=== PATIENT | female | born 1995 | race Caucasian/White ===

== ENCOUNTER 2018-03-31 15:51 | Emergency (ER) | payer MEDICAID ==
[2018-03-31 15:57] VITALS: BMI 21.7
[2018-03-31 16:04] VITALS: BP 106/68; PULSE 68; RESP 17; TEMP 98.6; O2SAT 100
[2018-03-31 16:43] LABS: HCG,QUALITATIVE URINE NEGATIVE (NEGATIVE)
[2018-03-31 16:52] LABS: SQUAMOUS EPITHIAL < 1 /hpf (0-5); URINE BILIRUBIN NEGATIVE (NEGATIVE); URINE BLOOD NEGATIVE (NEGATIVE); URINE CLARITY Clear (Clear); URINE COLOR Yellow (YELLOW); URINE GLUCOSE (UA) NORMAL (Normal); URINE LEUKOCYTE ESTERASE NEG Leu/uL (Negative); URINE PROTEIN NEGATIVE (NEGATIVE); URINE UROBILINOGEN NORMAL mg/dL (0.2-1.0)
--- NOTE | 2018-03-31 17:33 | C.PDOC ---
Addendum entered and electronically signed by Denisse Torres PA 04/04/18 15:32: Addendum Addendum: 04/04/18 15:31 UA shows no UTI but pt is shows clinical symptoms therefore will be given 5 day course of macrobid and instructed to follow up with PMD in 1-2 days. Discussed return precautions. Original Note: History Of Present Illness 23 y/o female presents to the ER complaining of urinary frequency and dysuria which has been present for the past 1 week. Patient denies having nausea, vomiting, abdominal pain, back pain, vaginal bleeding, and vaginal discharge. Time Seen by Provider: 03/31/18 16:07 Chief Complaint (Nursing): Female Genitourinary History Per: Patient History/Exam Limitations: no limitations Onset/Duration Of Symptoms: Days Current Symptoms Are (Timing): Still Present Past Medical History Reviewed: Historical Data, Nursing Documentation, Vital Signs Vital Signs: Last Vital Signs Temp 98.6 F 03/31/18 15:57 Pulse 68 03/31/18 15:57 Resp 17 03/31/18 15:57 BP 106/68 03/31/18 15:57 Pulse Ox 100 03/31/18 15:57 - Medical History PMH: No Chronic Diseases Surgical History: No Surg Hx - [facility] Procedures OTHER GROUP THERAPY (01/09/14) Family History: States: No Known Family Hx - Social History Hx Alcohol Use: No Hx Substance Use: No - Immunization History Hx Tetanus Toxoid Vaccination: No Hx Influenza Vaccination: No Hx Pneumococcal Vaccination: No Review Of Systems Except As Marked, All Systems Reviewed And Found Negative. Gastrointestinal: Negative for: Nausea, Vomiting, Abdominal Pain Genitourinary: Positive for: Dysuria, Frequency. Negative for: Vaginal Discharge, Vaginal Bleeding Musculoskeletal: Negative for: Back Pain Physical Exam - Physical Exam Appears: Non-toxic, No Acute Distress Skin: Normal Color, Warm, Dry Head: Atraumatic, Normacephalic Eye(s): bilateral: Normal Inspection Nose: Normal Oral Mucosa: Moist Neck: Supple Chest: Symmetrical Cardiovascular: Rhythm Regular Respiratory: Normal Breath Sounds, No Rales, No Rhonchi, No Wheezing Gastrointestinal/Abdominal: Normal Exam, Soft, No Tenderness, No Guarding, No Rebound Neurological/Psych: Oriented x3, Normal Speech ED Course And Treatment O2 Sat by Pulse Oximetry: 100 (RA) Pulse Ox Interpretation: Normal Progress Note: Labs, UA, and HCG Qual ordered and reviewed.On reassessment, patient is resting comfortably, and is in no acute distress. Patient was instructed to follow up with physician/clinic in 2-5 days for further evaluation. Disposition - Disposition Disposition: HOME/ ROUTINE Disposition Time: 17:24 Condition: STABLE Additional Instructions: Follow up with your primary medical doctor or clinic in 2-5 days for further evaluation. Return to the emergency department at any time if symptoms persist or worsen. Prescriptions: Nitrofurantoin Macrocrystals [Macrobid] 1 cap PO BID #10 cap Phenazopyridine HCl [Pyridium] 100 mg PO TID #6 tablet Instructions: Urinary Tract Infection, Adult (DC) Forms: Work/School/Gym Excuse, [facility] (Swedish) - Clinical Impression Clinical Impression: UTI (urinary tract infection)
== END 2018-03-31 17:56 | disposition home or self-care (01) ==
LOC: C.ER 15:51
DX: N39.0 Urinary tract infection, site not specified (principal)